=== PATIENT | male | born 1995 | race Caucasian/White ===

== ENCOUNTER 2016-10-22 19:49 | Emergency (ER) | payer OTHER ==
[~2016-10-22] VITALS: Ht 167.6 cm; Wt 66.7 kg
[2016-10-22 20:00] VITALS: Ht 167.6 cm; Wt 66.7 kg
--- NOTE | 2016-10-22 21:26 | DIAGNOSTIC IMAGING REPORT ---
LEFT ANTECUBITAL FOSSA ULTRASOUND CLINICAL HISTORY: left AC pain, donated blood COMPARISON STUDY: No previous studies for comparison. FINDINGS: Sonography of the left antecubital fossa demonstrated no fluid collection, hematoma, mass or other abnormality. IMPRESSION: No sonographic abnormality within the left antecubital fossa. Electronically signed by: Joe Delatorre M.D. 10/22/2016 9:25 PM Dictated Date/Time: 10/22/2016 9:24 PM
--- NOTE | 2016-10-22 21:50 | EMERGENCY ROOM VISIT NOTE ---
History First contact with patient: 20:19 Chief Complaint: OTHER COMPLAINT Stated Complaint: BUMP WHERE NEEDLE WAS PLACED FOR PLASMA DONATION History of Present Illness The patient is a 20 year old male who presents to the Emergency Room with complaints of left arm pain. The patient states that he donated plasma today, and the left arm where they brunilda blood developed a bump on it. He states this occurred one hour ago. He reports that when he flexed the arm, it made him feel like he was going to pass out. He denies any redness or warmth. He rates his overall discomfort a 1/10. He has not taken any medication for pain. Review of Systems A complete 10 point review of systems was reviewed with the patient with pertinent positives and negatives as per history of present illness. All else were negative. Social History Smoking Status: Never Smoker Alcohol Use: occasionally Marital Status: single Housing Status: lives alone Occupation Status: [employer] student Current/Historical Medications No Active Prescriptions or Reported Meds Physical Exam Vital Signs Date Time Temp Pulse Resp B/P (MAP) Pulse Ox O2 Delivery O2 Flow Rate FiO2 10/22/16 22:12 36.8 73 16 149/96 100 10/22/16 20:00 36.8 73 16 149/96 100 Room Air Physical Exam VITALS: Vitals are noted on the nurse's note and reviewed by myself. Vital signs stable. GENERAL: This is a 20-year-old male, in no acute distress, nondiaphoretic, well- developed well-nourished. SKIN: There is a minimal amount of erythema in the left AC. There is no significant erythema or induration. HEART: Regular rate and rhythm without murmurs gallops or rubs. LUNGS: Clear to auscultation bilaterally without wheezes, rales or rhonchi. No retractions or accessory muscle use. MUSCULOSKELETAL: Full range of motion of the left upper extremity. NEURO: Patient was alert and oriented to person place and time. Medical Decision & Procedures ER Provider Diagnostic Interpretation: LEFT ANTECUBITAL FOSSA ULTRASOUND CLINICAL HISTORY: left AC pain, donated blood COMPARISON STUDY: No previous studies for comparison. FINDINGS: Sonography of the left antecubital fossa demonstrated no fluid collection, hematoma, mass or other abnormality. IMPRESSION: No sonographic abnormality within the left antecubital fossa. Medical Decision Differential diagnosis includes hematoma, infection, superficial thrombosis, among others. The patient was evaluated as above. Physical exam does not show any significant abnormalities. An ultrasound of the area was performed due to patient's anxiety regarding his symptoms. This was interpreted by radiology with no acute findings. No significant hematoma or fluid collection. The patient was instructed to use warm compresses over the area for symptomatic relief. He verbalized understanding of my assessment and treatment plan and was discharged home in good condition. Impression Primary Impression: Left arm pain Departure Information Dispostion Home / Self-Care Condition GOOD Prescriptions No Active Prescriptions or Reported Meds Referrals No Doctor, Assigned (PCP) Patient Instructions [facility] Additional Instructions Apply warm compresses to the area for relief. For pain control, you can use the following [id number] medicines (if >12 yo): - Regular strength (325mg/tab) Tylenol (acetaminophen) 2 tabs every 4-6 hours as needed. Do not exceed 12 tablets in a 24 hour period. Avoid taking more than 4 grams (4000 mg) of Tylenol per day. This includes any other sources of acetaminophen you may take on a regular basis. - Regular strength (200 mg/tab) Advil (ibuprofen) 1-2 tabs every 4-6 hours as needed. Do not exceed a dose of 3200 mg per day. Follow-up with [facility] as needed.
[2016-10-22 22:12] VITALS: BP 149/96; PULSE 73; TEMP 36.8; O2SAT 100
== END 2016-10-22 22:12 | disposition home or self-care (01) ==
LOC: C.EDB 19:52 → C.EDD 22:12
DX: M79.602 Pain in left arm (principal)